=== PATIENT | female | born 1985 | race Native Hawaiian/Other Pacific Islander ===

== ENCOUNTER 2021-05-09 10:52 | Emergency (ER) | payer OTHER ==
[~2021-05-09] VITALS: Ht 157.5 cm; Wt 93.0 kg
[2021-05-09 10:59] VITALS: TEMP 97.7
[2021-05-09 12:02] VITALS: BP 116/80
== END 2021-05-09 12:03 | disposition home or self-care (01) ==
LOC: ED 10:52
DX: M54.12 Radiculopathy, cervical region (principal)
CPT/HCPCS: 93005; 96372; 99283; J1885; J2360; J2930